=== PATIENT | male | born 1985 | race Caucasian/White ===

== ENCOUNTER 2020-09-03 19:42 | Emergency (ER) | payer BC ==
[~2020-09-03] VITALS: Ht 180.3 cm; Wt 95.3 kg
[2020-09-03 20:01] VITALS: BP 125/80
== END 2020-09-03 21:33 | disposition home or self-care (01) ==
LOC: M.ERS 19:42
DX: Z20.828 Contact with and (suspected) exposure to other viral communicable diseases (principal)

== ENCOUNTER 2021-04-27 17:20 | Emergency (ER) | payer BC ==
[~2021-04-27] VITALS: Ht 180.3 cm; Wt 104.3 kg
[2021-04-27] MEDS ORDERED: FLEXERIL PO (18:13)
[2021-04-27] MEDS ORDERED: VENTOLIN HFA 1818 GM INH (18:13)
[2021-04-27 18:33] VITALS: BP 138/95
== END 2021-04-27 18:34 | disposition home or self-care (01) ==
LOC: M.ERS 17:20
DX: U07.1 COVID-19 (principal); Z90.49 Acquired absence of other specified parts of digestive tract

== ENCOUNTER 2021-05-05 17:12 | Emergency (ER) | payer BC ==
[~2021-05-05] VITALS: Ht 180.3 cm; Wt 102.1 kg
[~2021-05-05 17:12] MED LIST: FLEXERIL PO; VENTOLIN HFA 1818 GM INH
[2021-05-05 17:51] VITALS: BP 128/88
== END 2021-05-05 17:53 | disposition home or self-care (01) ==
LOC: M.ERS 17:12
DX: U07.1 COVID-19 (principal)